=== PATIENT | male | born 1995 | race African-American/Black ===

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

== ENCOUNTER 2018-02-10 18:34 | Emergency (ER) | payer SELFPAY ==
[2018-02-10] MEDS ORDERED: Dexamethasone 4 MG TAB ONE (19:41)
[2018-02-10] MEDS ORDERED: AMOXicillin 250 MG CAP ONE (19:41)
== END 2018-02-10 19:43 | disposition home or self-care (01) ==
LOC: BURERS 18:34
DX: J02.9 Acute pharyngitis, unspecified (principal); J06.9 Acute upper respiratory infection, unspecified
CPT/HCPCS: 99283; J8540

== ENCOUNTER 2018-04-19 21:46 | Emergency (ER) | payer BC, SELFPAY ==
[2018-04-19] MEDS ORDERED: Benzonatate 100 MG CAP ONE (22:23)
[2018-04-19] MEDS ORDERED: Amoxicillin/Potassium Clav 875 MG TAB ONE (22:23)
== END 2018-04-19 22:29 | disposition home or self-care (01) ==
LOC: BURERS 21:46
DX: H66.93 Otitis media, unspecified, bilateral (principal); J02.9 Acute pharyngitis, unspecified
CPT/HCPCS: 99282

== ENCOUNTER 2018-06-15 10:57 | Emergency (ER) | payer BC ==
[2018-06-15] MEDS ORDERED: Lidocaine 1% PF 5 ML VIAL ONE (11:41)
[2018-06-15] MEDS ORDERED: Fentanyl 100 MCG/2 ML VIAL ONE (11:44)
[2018-06-15] MEDS ORDERED: Lorazepam 2 MG/ML VIAL ONE (11:44)
--- NOTE | 2018-06-15 19:39 | RAD ---
RIGHT SHOULDER THREE VIEWS: 06/15/18 Comparison is made with the prior study of 01/01/15. An anterior inferior dislocation of the shoulder is present. There is probably a little irregularity of the inferior lip of the glenoid. No acute fracture was seen. The AC joint is not widened. IMPRESSION: Anterior shoulder dislocation. POS: HOME
--- NOTE | 2018-06-15 19:41 | RAD ---
RIGHT SHOULDER 06/15/18 Post reduction views were obtained. There is better opposition of the humeral head and glenoid now. I t is not frankly dislocated, but the humeral head does seem subluxed inferiorly a bit. The glenoid f myron has a mottled appearance to it, probably related to multiple prior dislocations. There may be so me small cystic changes in the humeral head near the articular surface. IMPRESSION: Reduction of dislocation. Some mild subluxation still seem to be present. POS: HOME
== END 2018-06-15 13:31 | disposition home or self-care (01) ==
LOC: BURERS 10:57
DX: S43.014A Anterior dislocation of right humerus, initial encounter (principal); F17.220 Nicotine dependence, chewing tobacco, uncomplicated; X50.1XXA Overexertion from prolonged static or awkward postures, initial encounter
CPT/HCPCS: 23650; 96374; 96375; J2001; J2060; J3010

== ENCOUNTER 2020-01-31 22:26 | Emergency (ER) | payer BC, SELFPAY ==
[2020-01-31] MEDS ORDERED: Ketorolac Tromethamine 60 MG/2 ML VIAL ONE (22:47)
[2020-01-31 23:18] LABS: Bilirubin Small (Negative); Blood, Urine Trace (Negative); Clarity Clear (Clear); Glucose, Urine (Dipstick) Negative (Negative); Ketone, Urine Trace mg/dL (Negative); Leukocyte Negative (Negative); Nitrite Negative (Negative); Protein, Urine (Dipstick) 30 mg/dL (Neg-Trace); Specific Gravity, Urine 1.025 (1.005-1.030); pH, Urine 7.5 (5.0-9.0)
[2020-01-31 23:24] LABS: Bacteria/HPF 1+ HPF (None Seen); Squamous Epithelial 0-3 HPF (0-3); WBC/HPF 0-3 HPF (0-3)
[2020-02-01 18:32] LABS: SARS-CoV-2 by NAA DETECTED (NotDetected)
[2020-02-01 18:33] LABS: SARS-CoV-2 MS2 Positive; SARS-CoV-2 N Gene Positive; SARS-CoV-2 S Gene Positive; SARS-CoV-2 orf1ab Positive
== END 2020-01-31 23:25 | disposition home or self-care (01) ==
LOC: BURERS 22:26
DX: U07.1 COVID-19 (principal); E86.0 Dehydration; F17.220 Nicotine dependence, chewing tobacco, uncomplicated; M54.5 Low back pain
CPT/HCPCS: 36416; 81003; 81015; 87635; 87804; 96372; 99284; J1885; U0003

== ENCOUNTER 2022-06-11 11:51 | Emergency (ER) | payer BC, SELFPAY | END 2022-06-11 13:00 | disposition home or self-care (01) | LOC: BURERS 11:51 | DX: S16.1XXA Strain of muscle, fascia and tendon at neck level, initial encounter (principal); F17.220 Nicotine dependence, chewing tobacco, uncomplicated; X50.0XXA Overexertion from strenuous movement or load, initial encounter; Y99.0 Civilian activity done for income or pay | CPT/HCPCS: 72125 ==

== ENCOUNTER 2023-02-03 08:22 | Emergency (ER) | payer OTHER, BC | END 2023-02-03 10:23 | disposition home or self-care (01) | LOC: BURERS 08:22 | DX: S43.401A Unspecified sprain of right shoulder joint, initial encounter (principal); F17.220 Nicotine dependence, chewing tobacco, uncomplicated; F17.210 Nicotine dependence, cigarettes, uncomplicated; Y93.F2 Activity, caregiving, lifting ==